=== PATIENT | male | born 1980 | race Caucasian/White ===

== ENCOUNTER 2018-03-17 16:54 | Emergency (ER) | payer OTHER ==
[2018-03-17 16:58] VITALS: BMI 30.5
--- NOTE | 2018-03-17 17:04 | PDOC ---
Rapid Medical Evaluation Chief Complaint: Blood Pressure Problem Time Seen by Provider: 03/17/18 16:58 Medical Evaluation: Allergies Allergy/AdvReac Type Severity Reaction Status Date / Time No Known Allergies Allergy Verified 03/17/18 16:58 Vital Signs Temp Pulse Resp BP Pulse Ox 98.1 F 78 18 170/102 97 03/17/18 16:56 03/17/18 16:56 03/17/18 16:56 03/17/18 16:56 03/17/18 16:56 03/17/18 16:59 I have performed a brief in-person evaluation of this patient. The patient presents with a chief complaint of:Toothache, currently on abx and taking motrin given by dentist yesterday. Went to this am for persistent pain and told he had elevated BP and referred to ER. No known h/o HTN and not on meds. Pertinent physical exam findings:BP 170/102, well megan I have ordered the following:labs/ekg check for EOD The patient will proceed to the ED for further evaluation. 03/17/18 17:04 Discharge Disposition - Diagnosis Elevated blood pressure reading - Referrals Referrals: Nghia Resendiz MD [Primary Care Provider] - - Patient Instructions - Post Discharge Activity
[2018-03-17 17:43] LABS: BASO % 0.5 % (0-2.0); HEMATOCRIT 41.6 % (35.4-49); HEMOGLOBIN 14.1 GM/dL (11.7-16.9); LYMPH % 21.8 % (8-40); MCH 29.1 pg (25.7-33.7); MCHC 33.9 g/dl (32.0-35.9); MEAN CELL VOLUME 85.7 fl (80-96); MEAN PLT VOLUME 8.4 fl (7.5-11.1); MONO % 6.5 % (3.8-10.2); NEUT % 70.2 % (42.8-82.8); PLATELET COUNT 293 K/MM3 (134-434); RBC 4.86 M/mm3 (4.00-5.60); RDW 13.4 % (11.9-15.9); WHITE BLOOD COUNT 8.3 K/mm3 (4.0-10.0)
[2018-03-17 18:06] LABS: URINE APPEARANCE CLEAR; URINE BILIRUBIN NEGATIVE (<2.0 mg/dL); URINE COLOR LTYELLOW; URINE GLUCOSE (UA) NEGATIVE (NEGATIVE); URINE KETONE NEGATIVE (NEGATIVE); URINE LEUK ESTERASE NEGATIVE (NEGATIVE); URINE NITRITE NEGATIVE (NEGATIVE); URINE PROTEIN NEGATIVE (NEGATIVE); URINE UROBILINOGEN NEGATIVE mg/dL (0.2-1.0)
[2018-03-17 18:09] LABS: ALBUMIN 4.6 g/dl (3.4-5.0); ALK PHOS 82 U/L (45-117); ANION GAP 9 MMOL/L (8-16); BILIRUBIN,TOTAL 0.5 mg/dL (0.2-1); BLOOD UREA NITROGEN 11 mg/dL (7-18); CALCIUM 9.9 mg/dL (8.5-10.1); CHLORIDE 106 mmol/L (98-107); CO2 23 mmol/L (21-32); CREATININE 0.9 mg/dL (0.55-1.3); GLUCOSE,RANDOM 112 mg/dL (74-106); POTASSIUM 3.7 mmol/L (3.5-5.1); SGOT/AST 35 U/L (15-37); SGPT/ALT 111 U/L (13-61); SODIUM 138 mmol/L (136-145); TOT PROT 8.9 g/dl (6.4-8.2)
[2018-03-17] MEDS ORDERED: AMOX TR/POT CLAV 875MG/125MG TABLETS (FP) PO ONE (19:38)
[2018-03-17] MEDS ORDERED: LIDOCAINE VISCOUS 2% ORAL/TOP 20 ML UNIT-DOSE CUP MM ONE (19:38)
[2018-03-17] MEDS ORDERED: KETOROLAC TROMETHAMINE 30 MG/1 ML VIAL IM ONE (19:38)
--- NOTE | 2018-03-17 19:38 | PDOC ---
History of Present Illness - General Chief Complaint: Blood Pressure Problem Stated Complaint: [facility] BLOOD PRESSURE Time Seen by Provider: 03/17/18 16:58 History Source: Patient - History of Present Illness Initial Comments: 03/17/18 20:07 37 year old male with no past medical history sent by urgent care for high blood pressure reading at the office. patient presented today to for right lower molar pain and gum swelling. patient reports that today he took one dose of amoxicillin and ibuprofen. now the pain is very severe. 03/19/18 00:44 Past History - Past Medical History Allergies/Adverse Reactions: Allergies Allergy/AdvReac Type Severity Reaction Status Date / Time No Known Allergies Allergy Verified 03/17/18 16:58 Home Medications: Ambulatory Orders Amoxicillin/Potassium Clav [Augmentin 875-125 Tablet] 1 each PO BID #20 tablet 03/17/18 Ibuprofen [Ibu] 800 mg PO QID PRN #20 tablet 03/17/18 Oxycodone HCl/Acetaminophen [Percocet 5-325 mg Tablet] 1 tab PO Q6H PRN #10 tablet MDD 4 03/17/18 Saccharomyces Boulardii [Florastor] 250 mg PO BID #30 capsule 03/17/18 COPD: No - Suicide/Smoking/Psychosocial Hx Smoking History: Never smoked Review of Systems - Review of Systems Able to Perform ROS?: Yes Constitutional: No: Symptoms Reported, See HPI, Chills, Diaphoresis, Fever, Loss of Appetite, Malaise, Night Sweats, Weakness, Weight Stable, Unintentional Wgt. Loss, Unexplained wgt Loss, Other HEENTM: Yes: Dental Problems Cardiac (ROS): No: Symptoms Reported, See HPI, Chest Pain, Edema, Irregular Heart Rate, Lightheadedness, Palpitations, Syncope, Chest Tightness, Other *Physical Exam - Vital Signs Last Vital Signs Temp Pulse Resp BP Pulse Ox 98.1 F 78 18 170/102 97 03/17/18 16:56 03/17/18 16:56 03/17/18 16:56 03/17/18 16:56 03/17/18 16:56 - Physical Exam General Appearance: Yes: Appropriately Dressed, Mild Distress HEENT: positive: Other (poor dentition # 30 severe tooth decay mild gum swelling ) Respiratory/Chest: positive: Lungs Clear, Normal Breath Sounds Cardiovascular: positive: Regular Rhythm, Regular Rate Extremity: positive: Normal Capillary Refill, Normal Inspection, Normal Range of Motion Integumentary: positive: Normal Color, Dry, Warm Neurologic: positive: Fully Oriented, Alert, Normal Mood/Affect ED Treatment Course - LABORATORY CBC & Chemistry Diagram: 03/17/18 17:35 03/17/18 17:35 - ADDITIONAL ORDERS Additional order review: Laboratory Results 03/17/18 03/17/18 17:47 17:35 Sodium 138 Potassium 3.7 Chloride 106 Carbon Dioxide 23 Anion Gap 9 BUN 11 Creatinine 0.9 Creat Clearance w eGFR > 60 Random Glucose 112 H Calcium 9.9 Total Bilirubin 0.5 AST 35 ALT 111 H Alkaline Phosphatase 82 Total Protein 8.9 H Albumin 4.6 Urine Color Ltyellow Urine Appearance Clear Urine pH 5.0 Ur Specific [place] 1.016 Urine Protein Negative Urine Glucose (UA) Negative Urine Ketones Negative Urine Blood Negative Urine Nitrite Negative Urine Bilirubin Negative Urine Urobilinogen Negative Ur Leukocyte Esterase Negative 03/17/18 17:35 RBC 4.86 MCV 85.7 MCHC 33.9 RDW 13.4 MPV 8.4 Neutrophils % 70.2 Lymphocytes % 21.8 Monocytes % 6.5 Eosinophils % 1.0 Basophils % 0.5 Medical Decision Making - Medical Decision Making A: dental infection; high blood pressure P: augmentin pain control follow up with dentist repeat b/p lowered patient to follow up with PMD *DC/Admit/Observation/Transfer Diagnosis at time of Disposition: Elevated blood pressure reading, Infected dental caries - Discharge Dispostion Disposition: HOME Condition at time of disposition: Good - Prescriptions Prescriptions: Amoxicillin/Potassium Clav [Augmentin 875-125 Tablet] 1 each PO BID #20 tablet Ibuprofen [Ibu] 800 mg PO QID PRN #20 tablet PRN Reason: Moderate Pain Oxycodone HCl/Acetaminophen [Percocet 5-325 mg Tablet] 1 tab PO Q6H PRN #10 tablet MDD 4 PRN Reason: Moderate Pain Saccharomyces Boulardii [Florastor] 250 mg PO BID #30 capsule - Referrals Referrals: Nghia Resendiz MD [Primary Care Provider] - - Patient Instructions Printed Discharge Instructions: DI for Tooth Decay, How to Monitor Your Blood Pressure at Home Additional Instructions: stop amoxicillin and flagyl. start augmentin as prescribed. take percocet for severe pain please follow up with your doctor for your blood pressure - Post Discharge Activity Forms/Work/School Notes: Back to Work
[2018-03-17 21:06] VITALS: BP 142/78; PULSE 74; TEMP 98.2
--- NOTE | 2018-03-17 21:18 | PDOC ---
*Physical Exam - Vital Signs Last Vital Signs Temp Pulse Resp BP Pulse Ox 98.2 F 74 20 142/78 99 03/17/18 21:05 03/17/18 21:05 03/17/18 21:05 03/17/18 21:05 03/17/18 21:05 - Physical Exam Comments: 03/17/18 21:17 The patient was examined by [ROGELIO Goyal] under my direct supervision. I personally evaluated the patient. I concur with the above findings and the plan of care. ED Treatment Course - LABORATORY CBC & Chemistry Diagram: 03/17/18 17:35 03/17/18 17:35 - ADDITIONAL ORDERS Additional order review: Laboratory Results 03/17/18 03/17/18 17:47 17:35 Sodium 138 Potassium 3.7 Chloride 106 Carbon Dioxide 23 Anion Gap 9 BUN 11 Creatinine 0.9 Creat Clearance w eGFR > 60 Random Glucose 112 H Calcium 9.9 Total Bilirubin 0.5 AST 35 ALT 111 H Alkaline Phosphatase 82 Total Protein 8.9 H Albumin 4.6 Urine Color Ltyellow Urine Appearance Clear Urine pH 5.0 Ur Specific [place] 1.016 Urine Protein Negative Urine Glucose (UA) Negative Urine Ketones Negative Urine Blood Negative Urine Nitrite Negative Urine Bilirubin Negative Urine Urobilinogen Negative Ur Leukocyte Esterase Negative 03/17/18 17:35 RBC 4.86 MCV 85.7 MCHC 33.9 RDW 13.4 MPV 8.4 Neutrophils % 70.2 Lymphocytes % 21.8 Monocytes % 6.5 Eosinophils % 1.0 Basophils % 0.5 - Medications Given in the ED: ED Medications Discontinued Medications Generic Name Dose Route Start Last Admin Trade Name Geraldine PRN Reason Stop Dose Admin Amoxicillin/Clavulanate Potassium 1 tab 03/17/18 19:38 03/17/18 19:56 Augmentin - 875mg Tablet PO 03/17/18 19:39 1 tab ONCE ONE Administration Ketorolac Tromethamine 30 mg 03/17/18 19:38 03/17/18 19:56 Toradol Injection - IM 03/17/18 19:39 30 mg ONCE ONE Administration Lidocaine HCl 4 ml 03/17/18 19:38 03/17/18 19:58 Xylocaine 2% Viscous Oral - MM 03/17/18 19:39 4 ml ONCE ONE Administration *DC/Admit/Observation/Transfer Diagnosis at time of Disposition: Elevated blood pressure reading, Infected dental caries - Discharge Dispostion Disposition: HOME Condition at time of disposition: Good - Prescriptions Prescriptions: Amoxicillin/Potassium Clav [Augmentin 875-125 Tablet] 1 each PO BID #20 tablet Ibuprofen [Ibu] 800 mg PO QID PRN #20 tablet PRN Reason: Moderate Pain Oxycodone HCl/Acetaminophen [Percocet 5-325 mg Tablet] 1 tab PO Q6H PRN #10 tablet MDD 4 PRN Reason: Moderate Pain Saccharomyces Boulardii [Florastor] 250 mg PO BID #30 capsule - Referrals Referrals: Nghia Resendiz MD [Primary Care Provider] - - Patient Instructions Printed Discharge Instructions: DI for Tooth Decay, How to Monitor Your Blood Pressure at Home Additional Instructions: stop amoxicillin and flagyl. start augmentin as prescribed. take percocet for severe pain please follow up with your doctor for your blood pressure - Post Discharge Activity Forms/Work/School Notes: Back to Work
--- NOTE | 2018-03-18 09:58 | EKG ---
Test Reason : Blood Pressure : / mmHG Vent. Rate : 065 BPM Atrial Rate : 065 BPM P-R Int : 148 ms QRS Dur : 122 ms QT Int : 434 ms P-R-T Axes : -10 -03 022 degrees QTc Int : 451 ms NORMAL SINUS RHYTHM NON-SPECIFIC INTRA-VENTRICULAR CONDUCTION DELAY BORDERLINE ECG NO PREVIOUS ECGS AVAILABLE Confirmed by JAVI HSIEH, BRIAN ([id number]) on 03/18/2018 9:58:07 AM Referred By: Confirmed By:BRIAN CALDWELL MD
== END 2018-03-17 21:06 | disposition home or self-care (01) ==
LOC: JER 16:54
DX: Z01.31 Encounter for examination of blood pressure with abnormal findings (principal); K08.89 Other specified disorders of teeth and supporting structures
CPT/HCPCS: 36415; 80053; 81003; 85025; 93005; 93010; 99283-25

== ENCOUNTER 2020-06-11 19:55 | Observation (INO) | payer OTHER ==
[2020-06-11] MEDS ORDERED: MAG HYDROX/AL HYDROX/SIMETH 30 ML UNIT-DOSE CUP PO ONE (20:19)
[2020-06-11] MEDS ORDERED: FAMOTIDINE 20 MG/50 ML IVPB 20 MG/50 ML MG IVPB ONE (20:19)
[2020-06-11 20:58] LABS: BASO % 0.5 % (0-2.0); EOS % 1.9 % (0-4.5); HEMATOCRIT 39.9 % (35.4-49); HEMOGLOBIN 13.3 GM/dL (11.7-16.9); LYMPH % 33.2 % (8-40); MCH 29.6 pg (25.7-33.7); MCHC 33.4 g/dl (32.0-35.9); MEAN CELL VOLUME 88.6 fl (80-96); MONO % 7.5 % (3.8-10.2); NEUT % 56.9 % (42.8-82.8); PLATELET COUNT 318 K/MM3 (134-434); RDW 12.9 % (11.9-15.9); WHITE BLOOD COUNT 6.4 K/mm3 (4.0-10.0)
[2020-06-11 21:17] LABS: CHLORIDE 100 mmol/L (98-107); POTASSIUM 3.8 mmol/L (3.5-5.1); SODIUM 137 mmol/L (136-145)
[2020-06-11 21:19] LABS: CALCIUM 9.4 mg/dL (8.5-10.1)
[2020-06-11 21:20] LABS: ALBUMIN 4.4 g/dl (3.4-5.0); ANION GAP 10 MMOL/L (8-16); BLOOD UREA NITROGEN 11.8 mg/dL (7-18); CO2 27 mmol/L (21-32); GLUCOSE,RANDOM 87 mg/dL (74-106); LIPASE 148 U/L (73-393)
[2020-06-11 21:23] LABS: SGOT/AST 89 U/L (15-37); SGPT/ALT 133 U/L (13-61)
[2020-06-11 21:24] LABS: BILIRUBIN,TOTAL 0.4 mg/dL (0.2-1); TOT PROT 8.6 g/dl (6.4-8.2)
[2020-06-11 21:25] LABS: ALK PHOS 72 U/L (45-117)
[2020-06-11] MEDS ORDERED: ASPIRIN 81 MG CHEWABLE TABLETS PO ONE (23:03)
[2020-06-11] MEDS ORDERED: NITROGLYCERIN 2% OINTMENT - 1GM PACKET TD ONE (23:03)
[2020-06-12] MEDS ORDERED: LISINOPRIL 5 MG TABLET PO ONE (01:11)
[2020-06-12 03:43] LABS: COCAINE, UR NEGATIVE ng/ml (CUTOFF=300); METHADONE, UR NEGATIVE ng/ml (CUTOFF=300); OPIATES, URI NEGATIVE ng/ml (CUTOFF=300); PHENCYCLIDINE,URINE NEGATIVE ng/ml (CUTOFF=25); URINE AMPHETAMINES NEGATIVE ng/ml (CUTOFF=500); URINE BARBITURATES NEGATIVE ng/ml (CUTOFF=200); URINE BENZODIAZEPINES NEGATIVE ng/ml (CUTOFF=200)
[2020-06-12 06:02] LABS: HEMATOCRIT 38.4 % (35.4-49); HEMOGLOBIN 13.1 GM/dL (11.7-16.9); MCH 29.8 pg (25.7-33.7); MEAN CELL VOLUME 87.7 fl (80-96); MEAN PLT VOLUME 7.8 fl (7.5-11.1); PLATELET COUNT 315 K/MM3 (134-434); RBC 4.38 M/mm3 (4.00-5.60); RDW 12.9 % (11.9-15.9); WHITE BLOOD COUNT 6.4 K/mm3 (4.0-10.0)
[2020-06-12 06:11] LABS: POTASSIUM 3.4 mmol/L (3.5-5.1)
[2020-06-12 06:16] LABS: ALBUMIN 4.2 g/dl (3.4-5.0); BLOOD UREA NITROGEN 11.1 mg/dL (7-18)
[2020-06-12] MEDS ORDERED: POTASSIUM CHLORIDE TABS 20 MEQ TABLET.ER (FP) PO ONE ×2 (06:17→06:42)
[2020-06-12 06:18] LABS: BILIRUBIN,DIRECT 0.2 mg/dL (0.0-0.2)
[2020-06-12 06:20] LABS: BILIRUBIN,TOTAL 0.7 mg/dL (0.2-1); CALCIUM 9.3 mg/dL (8.5-10.1)
[2020-06-12] MEDS ORDERED: ACETAMINOPHEN 650 MG/20.3 ML ORAL SOLUTION (CUPS) PO ONE (06:34)
[2020-06-12] MEDS ORDERED: ACETAMINOPHEN 650 MG/20.3 ML ORAL SOLUTION (CUPS) ONE (06:41)
[2020-06-12] MEDS ORDERED: PANTOPRAZOLE 40 MG TABLET PO SCH (10:00)
[2020-06-12] MEDS ORDERED: LISINOPRIL 5 MG TABLET PO SCH (10:00)
[2020-06-12] MEDS ORDERED: PANTOPRAZOLE 40 MG TABLET ONE (10:10)
[2020-06-12] MEDS ORDERED: LISINOPRIL 5 MG TABLET ONE (10:11)
[2020-06-12 12:40] VITALS: BMI 29.0
[2020-06-12] MEDS ORDERED: MORPHINE SULFATE 2 MG/ML VIAL IVPUSH PRN (15:46)
[2020-06-12] MEDS ORDERED: ACETAMINOPHEN 325 MG TABLET (FP) PO PRN (15:46)
[2020-06-12] MEDS ORDERED: ONDANSETRON 4 MG/2 ML VIAL IVPUSH PRN (15:47)
[2020-06-12] MEDS: amLODIPine BESYLATE 5 MG TABLET (FP) PO SCH (17:27)
[2020-06-13] MEDS: amLODIPine BESYLATE 5 MG TABLET (FP) PO SCH (09:47)
[2020-06-13] MEDS ORDERED: PANTOPRAZOLE 40 MG TABLET PO SCH (10:00)
[2020-06-13] MEDS ORDERED: LISINOPRIL 10 MG TABLET PO SCH (10:00)
[2020-06-13 10:13] LABS: POTASSIUM 4.2 mmol/L (3.5-5.1)
[2020-06-13 10:52] LABS: ALBUMIN 4.4 g/dl (3.4-5.0); BLOOD UREA NITROGEN 10.6 mg/dL (7-18); CALCIUM 10.1 mg/dL (8.5-10.1)
[2020-06-13 10:55] LABS: CREATININE 1.2 mg/dL (0.55-1.3)
[2020-06-13 10:57] LABS: TOT PROT 8.5 g/dl (6.4-8.2)
[2020-06-13 10:59] LABS: BILIRUBIN,TOTAL 1.5 mg/dL (0.2-1)
[2020-06-13] MEDS ORDERED: LISINOPRIL 10 MG TABLET PO ONE (12:00)
[2020-06-13 14:52] VITALS: BP 134/90; PULSE 85; TEMP 98.2
[2020-06-13 19:07] LABS: HEP B CORE AB, TOT Negative (Negative)
== END 2020-06-13 15:19 | disposition home or self-care (01) ==
LOC: JER 19:55 → JERBED 06-12 00:03 → J8W 06-12 12:20
PROVIDERS: ADMIT Family Medicine; ATTEND Family Medicine
PROC: 3E033GC Introduction of Other Therapeutic Substance into Peripheral Vein, Percutaneous Approach (ICD-10-PCS; principal; 2020-06-12)
DX: I16.0 Hypertensive urgency (principal); R94.5 Abnormal results of liver function studies; R74.01 Elevation of levels of liver transaminase levels; E78.5 Hyperlipidemia, unspecified; R10.13 Epigastric pain; E66.3 Overweight; Z68.29 Body mass index [BMI] 29.0-29.9, adult; Z84.89 Family history of other specified conditions; K76.0 Fatty (change of) liver, not elsewhere classified; Z29.9 Encounter for prophylactic measures, unspecified
CPT/HCPCS: 36415; 70450-TC; 71046-TC-FY; 71275-TC; 74174-TC; 76705-TC; 80048; 80053; 80076; 80307; 82550; 82553; 83690; 84484; 85025; 85027; 86704; 86706; 86707; 86708; 86709; 86803; 87340; 93005; 93010; 93306-TC; 96365; 99285-25; C9803; G0378; Q9967; U0003

== ENCOUNTER 2020-08-23 13:27 | Emergency (ER) | payer OTHER ==
[2020-08-23 13:37] VITALS: TEMP 97.9; BMI 30.7
[2020-08-23 14:49] VITALS: BP 143/93; PULSE 88
== END 2020-08-23 14:53 | disposition home or self-care (01) ==
LOC: JER 13:27
DX: I10 Essential (primary) hypertension (principal)
CPT/HCPCS: 99281-25

== ENCOUNTER 2021-05-03 20:53 | Emergency (ER) | payer OTHER ==
[2021-05-03 21:05] VITALS: BP 158/98; PULSE 105; TEMP 98.8; BMI 28.0
[2021-05-03 22:11] LABS: ARTERIAL BLD GAS O2 SATURATION 97.6 % (95-98); ARTERIAL BLOOD GAS BASE EXCESS -4.7 mmol/L (-2-2); ARTERIAL BLOOD GAS PO2 106.3 mmHg (80-100); ARTERIAL BLOOD GAS pH 7.335 (7.350-7.450)
[2021-05-03 22:18] LABS: BASO % 0.5 % (0-2.0); EOS % 6.4 % (0-4.5); HEMATOCRIT 40.1 % (35.4-49); LYMPH % 33.3 % (8-40); MCH 30.6 pg (25.7-33.7); MCHC 34.8 g/dl (32.0-35.9); MEAN CELL VOLUME 87.9 fl (80-96); MEAN PLT VOLUME 8.1 fl (7.5-11.1); MONO % 5.6 % (3.8-10.2); NEUT % 54.2 % (42.8-82.8); PLATELET COUNT 308 10^3/uL (134-434); RBC 4.56 M/mm3 (4.00-5.60); RDW 13.8 % (11.9-15.9); WHITE BLOOD COUNT 7.4 K/mm3 (4.0-10.0)
[2021-05-03] MEDS ORDERED: SODIUM CHLORIDE 0.9% 500 ML INFUS.BAG IV ONE (22:18)
[2021-05-03 22:42] LABS: CALCIUM 8.6 mg/dL (8.5-10.1)
[2021-05-03 22:44] LABS: ALBUMIN 4.4 g/dl (3.4-5.0); BLOOD UREA NITROGEN 13.7 mg/dL (7-18)
[2021-05-03 22:47] LABS: BILIRUBIN,TOTAL 0.2 mg/dL (0.2-1); CREATININE 0.9 mg/dL (0.55-1.3)
[2021-05-03 22:48] LABS: TOT PROT 8.8 g/dl (6.4-8.2)
== END 2021-05-04 | disposition left against medical advice (07) ==
LOC: JER 20:53
DX: T58.91XA Toxic effect of carbon monoxide from unspecified source, accidental (unintentional), initial encounter (principal)
CPT/HCPCS: 36415; 36600; 80053; 80307; 82375; 82550; 82553; 82803; 84484; 85025; 93005; 93010; 99284-25